=== PATIENT | female | born 1965 | race Caucasian/White ===

== ENCOUNTER 2017-02-12 12:26 | Emergency (ER) | payer OTHER ==
[2017-02-12 13:02] VITALS: BP 162/103; PULSE 83; RESP 16; TEMP 97.6; O2SAT 98
== END 2017-02-12 13:27 | disposition home or self-care (01) | DRG 125 ==
LOC: ED 12:26
DX: B02.30 Zoster ocular disease, unspecified (principal)
CPT/HCPCS: 99282

== ENCOUNTER 2018-04-13 13:59 | Emergency (ER) | payer OTHER, MEDICARE ==
[2018-04-13 13:07] LABS: CALCIUM 9.2 mg/dl (8.5-10.1); CARBON DIOXIDE 28.9 mEq/L (21-32); POTASSIUM 4.4 mMol/L (3.5-5.1)
[2018-04-13 13:11] LABS: CREATININE 18.34 mg/dl (0.60-1.00)
[2018-04-13 13:37] LABS: TROP I 0.984 ng/ml (0.000-0.056)
[2018-04-13 14:07] VITALS: TEMP 99.3
[2018-04-13] MEDS ORDERED: ASPIRIN 81 MG CHEWABLE CTB PO STA (14:10)
[2018-04-13] MEDS ORDERED: MORPHINE SULFATE 10 MG/ML SOL IV PRN (14:10)
[2018-04-13] MEDS ORDERED: SODIUM CHLORIDE 0.9% FLUSH 10 ML SOL IV PRN (14:10)
[2018-04-13] MEDS ORDERED: NITROGLYCERIN 0.4 MG TAB SL PRN (14:10)
[2018-04-13 14:22] LABS: BASOPHILS % (AUTO) 0 % (0-3); EOSINOPHILS % (AUTO) 2 % (0-9); HEMATOCRIT 21 % (35-47); HEMOGLOBIN 7.1 gm/dl (12.0-15.5); LYMPHOCYTES % (AUTO) 4.95 % (10-50); MEAN CORPUSCULAR HEMOGLOBIN 33.3 pg (27.0-32.0); MEAN CORPUSCULAR HGB CONC 34.2 gm/dl (32.0-36.0); MEAN CORPUSCULAR VOLUME 97 fL (81-99); NEUTROPHILS % (AUTO) 85.2 % (37-80)
[2018-04-13 14:34] LABS: INR 1.02 (0.86-1.12)
[2018-04-13 14:40] LABS: ALBUMIN 2.9 gm/dl (3.4-5.0); BILIRUBIN,TOTAL 0.3 mg/dl (0.2-1.0); CALCIUM 8.9 mg/dl (8.5-10.1); CARBON DIOXIDE 26.9 mEq/L (21-32); POTASSIUM 4.2 mMol/L (3.5-5.1); TOTAL PROTEIN 6.4 gm/dl (6.4-8.2); TROP I 0.969 ng/ml (0.000-0.056)
[2018-04-13 14:42] LABS: CREATININE 18.7 mg/dl (0.60-1.00)
[2018-04-13 15:28] VITALS: BP 116/78; PULSE 96; RESP 17; O2SAT 98
== END 2018-04-13 15:39 | disposition short-term general hospital (02) | DRG 281 ==
LOC: ED 13:59
DX: I21.4 Non-ST elevation (NSTEMI) myocardial infarction (principal); Z94.0 Kidney transplant status; E11.9 Type 2 diabetes mellitus without complications; D64.9 Anemia, unspecified; E78.5 Hyperlipidemia, unspecified; E03.9 Hypothyroidism, unspecified; F32.9 Major depressive disorder, single episode, unspecified; I10 Essential (primary) hypertension; N18.9 Chronic kidney disease, unspecified; R06.02 Shortness of breath
CPT/HCPCS: 36415; 71045; 80048; 80053; 82550; 83880; 84484; 85025; 85610; 85730; 93005; 99284; 99291